=== PATIENT | male | born 1985 | race Asian ===

== ENCOUNTER 2017-03-30 11:24 | Emergency (ER) | payer BC, OTHER ==
[2017-03-30 13:56] LABS: INFLUENZA A PATIENT NEGATIVE (NEGATIVE); INFLUENZA B PATIENT NEGATIVE (NEGATIVE); OBC FLU VALID
== END 2017-03-30 15:30 | disposition home or self-care (01) ==
LOC: ER 11:24
DX: B34.9 Viral infection, unspecified (principal)
CPT/HCPCS: 71046; 87804; 87804-59; 99285-25